=== PATIENT | male | born 1985 | race Caucasian/White ===

== ENCOUNTER 2020-09-23 03:40 | Outpatient (CLI) | payer OTHER, SELFPAY ==
[2020-09-24 14:37] LABS: COVID-19 RT-PCR UVMMC Result Positive (Negative)
== END 2020-09-23 03:41 | disposition home or self-care (01) ==
LOC: LBO 03:40
PROVIDERS: PCP Family Medicine; Visit Provider Family Medicine
DX: Z20.822 Contact with and (suspected) exposure to COVID-19 (principal)
CPT/HCPCS: U0003

== ENCOUNTER 2020-10-12 11:41 | Outpatient (CLI) | payer OTHER, SELFPAY ==
[2020-10-12 12:35] LABS: HCT 42.5 % (40.0-50.0); HGB 14.3 g/dL (13.5-17.5); MCH 30.7 pg (27.0-33.0); MCHC 33.6 % (32.0-36.0); MCV 91.2 fL (80-95); MPV 10.1 fL (8.0-11.0); Platelet Count 287 10^3/uL (130-400); RBC 4.66 10^6/uL (4.36-5.78); RDW 12.5 % (11.8-14.1); RDW-SD 41.3 fL
[2020-10-12 13:02] LABS: ALT 158 U/L (16-63); AST 65 U/L (15-37); Albumin 4.2 g/dL (3.4-5.0); Alkaline Phosphatase 63 U/L (46-116); Anion Gap 7.8 mmol/L (3-11); BUN 13 mg/dL (7-18); Bilirubin, Total 0.5 mg/dL (0.2-1.0); CO2 28.2 mmol/L (21.0-32.0); CREATININE 0.8 mg/dL (0.70-1.30); Calcium 9.4 mg/dL (8.5-10.1); Calculated LDL 122 mg/dL (<100); Chloride 104 mmol/L (98-107); Cholesterol 190 mg/dL (<200); Glucose 103 mg/dL (74-106); HDL Cholesterol 53 mg/dL (40-60); Potassium 4.5 mmol/L (3.5-5.1); Sodium 140 mmol/L (136-145); TSH (W/Ref FT4) 2.35 uIU/mL (0.36-3.74); Total Protein 7.8 g/dL (6.4-8.2); Triglyceride 78 mg/dL (<150)
== END 2020-10-12 11:42 | disposition home or self-care (01) ==
LOC: LOS 11:41
PROVIDERS: PCP Family Medicine; Visit Provider Nurse Practitioner Family
DX: Z00.00 Encounter for general adult medical examination without abnormal findings (principal); Z13.220 Encounter for screening for lipoid disorders; Z13.228 Encounter for screening for other metabolic disorders; E07.0 Hypersecretion of calcitonin
CPT/HCPCS: 36415; 80053; 80061; 85027; 84443

== ENCOUNTER 2024-03-19 04:48 | Outpatient (CLI) | payer OTHER, SELFPAY ==
[2024-03-19 13:01] LABS: Hemoglobin A1C 5.5 % (<5.7)
[2024-03-19 13:03] LABS: Calculated LDL 106 mg/dL (<100); Cholesterol 193 mg/dL (<200); HDL Cholesterol 63 mg/dL (40-60); Triglyceride 122 mg/dL (<150)
== END 2024-03-19 04:49 | disposition home or self-care (01) ==
LOC: LOS 04:48
PROVIDERS: PCP Nurse Practitioner Family; Visit Provider Nurse Practitioner Family
DX: Z13.220 Encounter for screening for lipoid disorders (principal); Z13.1 Encounter for screening for diabetes mellitus
CPT/HCPCS: 36415; 80061; 83036

== ENCOUNTER 2024-04-10 18:54 | Outpatient (CLI) | payer OTHER, SELFPAY ==
--- NOTE | 2024-04-10 18:45 | RT.EKG_ITS ---
APPROVED REPORT Exam: Resting ECG Reason for Exam: chest pain Patient Location: O HR:76 bpm ECG Measurements Heart Rate 76 AXIS PA 162 P 44 QRSd 89 QRS 72 QT 369 T 34 QTc 415 Conclusion Sinus rhythm...normal P axis, V-rate 50- 99 Normal Electrocardiogram
== END 2024-04-10 18:55 | disposition home or self-care (01) ==
LOC: DI.CM 18:56
PROVIDERS: PCP Nurse Practitioner Family; Visit Provider Physician Assistant
DX: R07.9 Chest pain, unspecified (principal)
CPT/HCPCS: 93010

== ENCOUNTER 2024-04-13 09:53 | Outpatient (CLI) | payer OTHER, SELFPAY ==
--- NOTE | 2024-04-13 07:45 | DI.RAD_ITS ---
Exam(s) XR CHEST 2V PA LATERAL EXAM: XR CHEST 2V PA LATERAL CLINICAL HISTORY: chest pain R07.9 TECHNIQUE: 2D digital imaging was performed of the chest. Two images were obtained. PA and lateral views were obtained. COMPARISON: CR CHEST 2 VIEWS PA,LAT from 08/02/2015 FINDINGS: MEDIASTINUM: Normal. HEART: Normal. PULMONARY VASCULATURE: Normal. LUNGS: Clear. PLEURAL SPACE: No pleural effusion or pneumothorax. BONE:Within normal limits for the patient's age. OTHER FINDINGS:Normal. IMPRESSION: No acute pulmonary findings. DATA REPOSITORY: RADIATION DOSE DELIVERED:
== END 2024-04-13 10:13 ==
LOC: DI 09:53
PROVIDERS: PCP Nurse Practitioner Family; Visit Provider Physician Assistant
DX: R07.9 Chest pain, unspecified (principal)
CPT/HCPCS: 71046

== ENCOUNTER 2024-04-30 01:06 | Outpatient (CLI) | payer OTHER, SELFPAY ==
--- NOTE | 2024-04-30 12:15 | DI.RAD_ITS ---
Exam(s) XR LUMBAR SPINE COMPLETE EXAM: XR LUMBAR SPINE COMPLETE CLINICAL HISTORY: Continuing lower back pain,m54.50. TECHNIQUE: 2D digital imaging was performed. Five views. COMPARISON: No exams were available for comparison FINDINGS: BONES: No fracture or destructive lesion. Vertebral body heights are maintained. No facet hypertro phy identified . DISKS: Intervertebral disc spaces are maintained. The SI joints are unremarkable. ALIGNMENT: Lumbar spinal alignment is within normal limits. SOFT TISSUE: Normal. IMPRESSION: Unremarkable radiographs of the lumbar spine. DATA REPOSITORY: RADIATION DOSE DELIVERED:
== END 2024-04-30 01:26 ==
LOC: DI 01:06
PROVIDERS: PCP Nurse Practitioner Family; Visit Provider Nurse Practitioner Family
DX: M54.50 Low back pain, unspecified (principal)
CPT/HCPCS: 72110

== ENCOUNTER 2024-10-05 00:41 | Outpatient (CLI) | payer OTHER, SELFPAY ==
--- NOTE | 2024-10-05 05:55 | ETT_ITS ---
APPROVED REPORT Exam: Exercise Treadmill Patient Location: Out-Patient Room/Bed: Stress Nurse: Gómez Rodriguez RN Ordering Provider:DENISE DE LA ROSA, Contact Number: [phone] BMI: 37.11 Baseline Rhythm: Sinus Rhythm. Indications: Chest Pain; Palpitations. Medical History Medical History: Cholecystectomy. Cardiac Medications: Omeprazole. Allergies: None. Cardiac Risk Factors: Family Hx; HLD; Obesity. Previous Cardiac Procedures: None. Pretest Chest Pain Characteristics: None. Exercise History: Indeterminate. Physical Disabilities: None. Lung Sounds: Diminished in bilateral posterior bases; clear bilaterally throughout otherwise, anterio r and posterior. Heart Sounds: S1 and S2 auscultated. Stress Test Details Test: Exercise stress testing was performed using a Johann protocol. Rest Stress HR Resting HR Supine: 85 bpm Max Heart Rate (APMHR): 180 bpm Resting HR Standin bpm Target HR (85% APMHR): 153 bpm Max HR Achieved: 167 bpm % of APMHR: 93 Recovery HR: 101 bpm HR response to stress: Normal HR response to stress. BP Resting BP Supine: 142/90 mmHg Resting BP Standin/110 mmHg Max BP: 194/88 mmHg Recovery BP: 152/96 mmHg BP response to stress: Normal blood pressure response to stress. ECG Resting ECG: Sinus Rhythm. Ectopy: None. Stress ECG: Sinus Tachycardia. ST Change: No significant ST segment changes noted. Arrhythmia: None. Recovery ECG: Sinus Rhythm. Recovery ST Change: No significant ST segment changes noted. Recovery Arrhythmia: None. Clinical Reason for Termination: Target HR Achieved. Stress Symptoms: None. Exercise duration: 08 min58 sec Highest Stage Reached: Stage 3: 3.4 mph at 14% grade. Exercise capacity: 10.16 METs Angina Score: None Roche Treadmill Score: 8.6 Rate Pressure Product: [id number] Stress ECG Conclusion 1. Resting electrocardiogram was normal 2. Patient exercised on the Johann protocol and completed workload of 10 METS 3. Normal heart rate and blood pressure response to exercise. The patient achieved 93% of maximum pr edicted heart rate for age 4. There was no electrocardiographic evidence of myocardial ischemia 5. There were no significant dysrhythmias Roche Treadmill Score is 8.6 which is Low risk. Stress Test Summary STAGE Time (mins) Speed (mph) Grade (%) HR BP SpO2 SYMPTOMS METS Supine 85 142/90 98 Standing 86 162/110 95 1 3 1.7 10 119 158/92 94 4.5 2 6 2.5 12 138 174/96 95 7 3 9 3.4 14 167 95 10 1 min recovery 104 194/88 95 3 min recovery 103 180/90 97 6 min recovery 101 152/963 97 Pt. was asymptomatic throughout the stress test. Pt. was conversing pleasantly with nursing staff upo n leaving the Stress Lab. Pt. left ambulatory in no apparent distress.
== END 2024-10-05 01:01 ==
LOC: DI 00:41
PROVIDERS: PCP Nurse Practitioner Family; Visit Provider Internal Medicine Cardiovascular Disease
DX: R00.2 Palpitations (principal); R07.9 Chest pain, unspecified
CPT/HCPCS: 93017

== ENCOUNTER 2024-10-27 07:36 | Outpatient (CLI) | payer OTHER, SELFPAY ==
--- NOTE | 2024-10-27 08:42 | W.CARDEVENT ---
Date of service: 10/27/24 Time of Service: 08:42 Cardiac Event Recorder Referring Provider:: Sarita Gilliland Indications:: Palpitations Cardiac Event Note: This is a cardiac event monitor. Patient was monitored for 5 days and 16 hours. Rhythm throughout was sinus with an average heart rate of 88. Minimum was 44, maximum 164. There were very rare isolated atrial and ventricular ectopic beats. There was no atrial fibrillation, no high-grade AV block, no pauses greater than 2 seconds.. Patient's symptoms correlated to sinus rhythm
== END 2024-10-27 07:37 | disposition home or self-care (01) ==
LOC: CARDOPNVT 07:36
PROVIDERS: PCP Nurse Practitioner Family; Visit Provider Internal Medicine Cardiovascular Disease
DX: R00.2 Palpitations (principal)
CPT/HCPCS: 93248

== ENCOUNTER 2025-05-12 01:15 | Outpatient (CLI) | payer OTHER, SELFPAY ==
--- NOTE | 2025-05-12 07:15 | DI.MRI_ITS ---
Exam(s) MR LUMBAR SPINE WO EXAM: MR LUMBAR SPINE WO CLINICAL HISTORY: low back pain,m54.50,m54.51,vertebrogenic low back pain,m54.50. TECHNIQUE: Multiplanar multisequence MRI of the Lumbar spine was performed. COMPARISON: CR XR LUMBAR SPINE COMPLETE from 04/30/2024 FINDINGS: Bones: The last intervertebral disc space is designated the L5/S1 level for the numbering purpose of this examination. The vertebral body heights are well maintained. Alignment is satisfactory. Degenerative endplate signal changes are seen at L4-L5. There is a hemangioma or fatty rest in the L2 vertebral body. Cord: It is of normal size and signal intensity. T12-L1: No disc herniations or bulges are present. No central spinal canal or neural foraminal stenosis. L1-2: No disc herniations or bulges are present. No central spinal canal or neural foraminal stenosis. L2-3: No disc herniations or bulges are present. No central spinal canal or neural foraminal stenosis. L3-4: No disc herniations or bulges are present. No central spinal canal or neural foraminal stenosis. L4-5: There is a mild diffuse disc bulge. No central spinal canal or neural foraminal stenosis. L5-S1: There is a mild diffuse disc bulge which extends into the left neural foramen causing mild left neural foraminal narrowing. There is no significant central spinal canal or right neural foraminal stenosis. Soft tissues: The visualized SI joints and sacrum are well maintained. The paraspinal soft tissues are unremarkable. IMPRESSION: 1. There is a mild diffuse disc bulge at L5-S1 which extends into the left neural foramen causing mild left neural foraminal narrowing. 2. There is otherwise no significant central spinal canal or neural foraminal stenosis in the lumbar spine. DATA REPOSITORY:
== END 2025-05-12 01:35 ==
LOC: DI 01:15
PROVIDERS: PCP Nurse Practitioner Family; Visit Provider Anesthesiology Pain Medicine
DX: M51.370 Other intervertebral disc degeneration, lumbosacral region with discogenic back pain only (principal)
CPT/HCPCS: 72148

== ENCOUNTER 2025-06-02 01:52 | Outpatient (CLI) | payer OTHER, SELFPAY ==
[2025-06-02 14:20] LABS: Hemoglobin A1C 5.5 % (<5.7)
[2025-06-02 14:28] LABS: ALT 92 U/L (10-49); AST 53 U/L (<34); Albumin 4.5 g/dL (3.4-5.0); Alkaline Phosphatase 53 U/L (46-116); Anion Gap 5.8 mmol/L (3-11); BUN 13 mg/dL (9-23); Bilirubin, Total 0.80 mg/dL (0.2-1.2); CO2 27.2 mmol/L (20.0-31.0); Calcium 9.3 mg/dL (8.3-10.6); Chloride 105 mmol/L (98-107); Cholesterol 182 mg/dL (<200); Glucose 104 mg/dL (74-106); HDL Cholesterol 53 mg/dL (>40); Potassium 4.0 mmol/L (3.5-5.1); Sodium 138 mmol/L (136-145); Total Protein 7.5 g/dL (5.7-8.2)
== END 2025-06-02 01:53 | disposition home or self-care (01) ==
LOC: LOS 01:52
PROVIDERS: PCP Nurse Practitioner Family; Visit Provider Nurse Practitioner Family
DX: Z13.220 Encounter for screening for lipoid disorders (principal); Z13.1 Encounter for screening for diabetes mellitus; R74.8 Abnormal levels of other serum enzymes
CPT/HCPCS: 36415; 80053; 80061; 83036

== ENCOUNTER 2025-06-14 08:01 | Outpatient (CLI) | payer OTHER, SELFPAY ==
--- NOTE | 2025-06-14 08:00 | RT.EKG_ITS ---
APPROVED REPORT Exam: Resting ECG Reason for Exam: chest pain Patient Location: O HR:74 bpm ECG Measurements Heart Rate 74 AXIS FL 155 P 51 QRSd 88 QRS 64 QT 369 T 31 QTc 410 Conclusion Sinus rhythm...normal P axis, V-rate 50- 99 Normal Electrocardiogram
== END 2025-06-14 08:02 | disposition home or self-care (01) ==
LOC: DI.CM 08:02
PROVIDERS: PCP Nurse Practitioner Family; Visit Provider Nurse Practitioner Family
DX: R07.89 Other chest pain (principal)
CPT/HCPCS: 93010